=== PATIENT | male | born 1975 | race Two or more races ===

== ENCOUNTER 2020-04-07 22:47 | Emergency (ER) | payer SELFPAY ==
[~2020-04-07] VITALS: Ht 162.6 cm; Wt 70.0 kg
[2020-04-07] MEDS ORDERED: HALOPERIDOL LACTATE 5MG/ML VIAL IM STA (23:03)
[2020-04-07] MEDS ORDERED: LORAZEPAM 2MG/ML CPJ IM STA (23:03)
[2020-04-07 23:37] LABS: BASOPHILS % 0.5 % (0.0-2.0); EOSINOPHILS % 0.4 % (0.0-5.0); HEMATOCRIT. 43.9 % (42.0-52.0); HEMOGLOBIN. 15.2 g/dL (14.0-18.0); LYMPHOCYTES % 14.4 % (20.0-50.0); MEAN CORPUSCULAR VOLUME 89.7 fL (80.0-94.0); MEAN PLATELET VOLUME 8.1 fl (7.4-10.4); MONOCYTES % 5.2 % (2.0-8.0); NEUTROPHILS % 79.5 % (40.0-76.0); PLATELET 283 x1000/uL (130-400); RED CELL DISTRIBUTION WIDTH 13.2 % (11.6-14.6)
[2020-04-07 23:41] LABS: CHLORIDE 105 mEq/L (98-107)
[2020-04-07 23:44] LABS: ETHANOL BLOOD < 10 mg/dL
[2020-04-07 23:49] LABS: CREATINE KINASE 157 IU/L (39-308)
[2020-04-07 23:50] LABS: CLARITY URINE CLEAR (CLEAR); COLOR URINE YELLOW (YELLOW); KETONES URINE TRACE (NEGATIVE); LEUKOCYTE ESTERASE URINE NEGATIVE (NEGATIVE); NITRITE URINE NEGATIVE (NEGATIVE); OCCULT BLOOD URINE NEGATIVE (NEGATIVE); PROTEIN URINE TRACE (NEGATIVE); SPECIFIC GRAVITY URINE 1.027 (1.005-1.030)
[2020-04-07 23:58] LABS: *AMPHETAMINES SCREEN URINE PRESUMTIVE POSITIVE (NEGATIVE); *BARBITURATES SCREEN URINE NEGATIVE (NEGATIVE); *BENZODIAZEPINES SCREEN URINE NEGATIVE (NEGATIVE); *COCAINE SCREEN URINE NEGATIVE (NEGATIVE)
[2020-04-07 23:59] LABS: CANNABINOID URINE SCREEN NEGATIVE (NEGATIVE); METHADONE URINE SCREEN NEGATIVE (NEGATIVE); OPIATES URINE SCREEN NEGATIVE (NEGATIVE); PHENCYCLIDINE URINE SCREEN NEGATIVE (NEGATIVE)
[2020-04-08] MEDS ORDERED: SODIUM CHLORIDE 0.9% 1,000 ML IV ONE
[2020-04-08 10:42] VITALS: BP 101/63
== END 2020-04-08 11:11 | disposition home or self-care (01) ==
LOC: ER 22:47
DX: R45.1 Restlessness and agitation (principal); E87.2 Acidosis; F15.10 Other stimulant abuse, uncomplicated; R41.82 Altered mental status, unspecified; R44.1 Visual hallucinations; R61 Generalized hyperhidrosis
CPT/HCPCS: 36415; 70450; 80053; 80305; 80307; 80320; 80329; 81003; 82140; 82550; 82962; 83605; 83690; 84484; 85025; 93005; 96360; 96361; 96372; 99285; J1630; J2060; G0480